=== PATIENT | female | born 1960 | race Caucasian/White ===

== ENCOUNTER 2018-03-05 18:10 | Emergency (ER) | payer MEDICAID ==
[~2018-03-05] VITALS: Ht 149.9 cm; Wt 68.0 kg
[2018-03-05 18:31] VITALS: BP 122/80
== END 2018-03-05 18:31 | disposition home or self-care (01) ==
LOC: ER 18:11
DX: H11.31 Conjunctival hemorrhage, right eye (principal)
CPT/HCPCS: A4606; Z7502; Z7610